=== PATIENT | male | born 1995 | race Caucasian/White ===

== ENCOUNTER 2016-11-22 02:10 | Emergency (ER) | payer OTHER ==
[2016-11-22] MEDS ORDERED: IPRATROPIUM/ALBUTEROL 3 ML DEYVIAL ONE (02:14)
[2016-11-22] MEDS ORDERED: IPRATROPIUM/ALBUTEROL 3 ML DEYVIAL IH ONE ×2 (02:17→02:23)
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
[2016-11-22 02:20] VITALS: BP 119/77; PULSE 88; RESP 28; O2SAT 95
[2016-11-22] MEDS ORDERED: predniSONE 20 MG TAB PO ONE (02:23)
[2016-11-22 02:27] VITALS: TEMP 97.9
== END 2016-11-22 02:50 | disposition home or self-care (01) ==
DX: J45.909 Unspecified asthma, uncomplicated (principal)